=== PATIENT | female | born 1965 | race American Indian/Alaskan Native ===

== ENCOUNTER 2016-06-11 13:34 | Outpatient (CLI) | payer BC ==
--- NOTE | 2016-06-11 14:07 | XRay Report ---
ABDOMEN RADIOGRAPH INDICATION: IUD placement. COMPARISON: None similar at this institution. FINDINGS: Frontal abdominal radiograph demonstrates an IUD projecting over/adjacent a 3 mm midline pelvic fibroid. Moderate to large ascending and transverse colon stool/possible constipation. Lung bases/diaphragm excluded from the superior radiographic margin. Intact bones. CONCLUSION: Findings, as above. Please correlate. Thank you for the opportunity to participate in this patient's care.
== END 2016-06-11 13:35 | disposition home or self-care (01) ==
LOC: SPVIMAG 13:34
PROVIDERS: ATTEND Obstetrics & Gynecology
DX: Z97.5 Presence of (intrauterine) contraceptive device (principal)
CPT/HCPCS: 74000